=== PATIENT | male | born 1990 | race Two or more races ===

== ENCOUNTER 2016-09-02 10:51 | Emergency (ER) | payer SELFPAY ==
[~2016-09-02] VITALS: Ht 172.7 cm; Wt 99.8 kg
[2016-09-02 10:47] VITALS: BP 138/82
[2016-09-02] MEDS ORDERED: LORazepam Inj 2mg/ml 1ml IV ONE ×2 (11:00→12:30)
[2016-09-02 11:14] LABS: MEAN CORPUSCULAR HEMOGLOBIN 29.1 PG (27.0-31.0); MEAN CORPUSCULAR HGB CONC 33.5 G/DL (32.0-36.0); MEAN CORPUSCULAR VOLUME 87 FL (80-99); PLATELET COUNT 415 K/UL (150-450); RED BLOOD COUNT 6.04 M/UL (4.70-6.10); RED CELL DISTRIBUTION WIDTH 12.6 % (11.6-14.8); WHITE BLOOD COUNT 13.3 K/UL (4.8-10.8)
[2016-09-02 11:27] LABS: ACETAMINOPHEN < 10 ug/mL (10-30); ALANINE AMINOTRANSFERASE 14 U/L (3-41); ALBUMIN/GLOBULIN RATIO 1.4 (1.0-2.7); ALCOHOL < 10 mg/dL; ANION GAP 32 (5-15); ASPARTATE AMINO TRANSFERASE 23 U/L (5-40); CALCIUM 9.5 mg/dL (8.6-10.2); CARBON DIOXIDE 20 mEQ/L (20-30); CHLORIDE 86 mEQ/L (98-107); CREATININE 1.2 mg/dL (0.7-1.2); GLOMERULAR FILTRATION RATE > 60 mL/min (>60); HEMOLYSIS 6; POTASSIUM 3.2 mEQ/L (3.4-4.9); SODIUM 138 mEQ/L (135-145); TOTAL PROTEIN 8.3 g/dL (6.6-8.7)
[2016-09-02 11:41] LABS: BILIRUBIN,DIRECT 0.3 mg/dL (0.1-0.3)
[2016-09-02 12:52] LABS: BAND NEUTROPHILS % (MANUAL) 0 % (0-8); BASOPHILS % (MANUAL) 0 % (0-2); EOSINOPHILS % (MANUAL) 0 % (0-3); LYMPHOCYTES % (MANUAL) 5 % (20-45); NEUTROPHILS % (MANUAL) 89 % (45-75); PLATELET ESTIMATE ADEQUATE; PLATELET MORPHOLOGY NORMAL; TOTAL CELLS COUNTED 100
[2016-09-02 13:11] VITALS: BP 132/80
[2016-09-02 13:12] VITALS: BP 132/80
[2016-09-02] MEDS ORDERED: ZOFRAN ODT4 MG ORAL (13:22)
[2016-09-02] MEDS ORDERED: LIBRIUM25 MG ORAL (13:22)
--- NOTE | 2016-09-02 14:42 | Emergency Room Report ---
History of Present Illness General Chief Complaint: Alcohol Intoxication Source: Patient Present Illness HPI 25-year-old male presents ED complaining of nausea and vomiting. States that he drank a lot of alcohol last night. States he's been having nausea and vomiting since. Last drink was last night. States he feels shaky and feels like he is going into withdrawals. States that he drinks every day. Denies any drug use. Denies hearing voices. Denies any hallucinations. Denies any abdominal pain. No other aggravating or relieving factors. Denies any other associated symptoms Allergies: Coded Allergies: No Known Allergies (Unverified , 09/02/16) Patient History Past Medical History: none Past Surgical History: none Pertinent Family History: none Social History: Denies: alcohol use, drug use, smoking Immunizations: UTD Reviewed Nursing Documentation: PMH: Agreed, PSxH: Agreed Nursing Documentation-PMH Past Medical History: No Stated History Review of Systems All Other Systems: negative except mentioned in HPI Physical Exam Vital Signs Date Time Temp Pulse Resp B/P Pulse Ox O2 Delivery O2 Flow Rate FiO2 09/02/16 10:43 100 24 138/82 100 Room Air 09/02/16 13:11 98.0 Sp02 EP Interpretation: reviewed, normal General Appearance: no apparent distress, alert, GCS 15, non-toxic Head: normocephalic, atraumatic Eyes: bilateral eye PERRL, bilateral eye normal inspection ENT: hearing grossly normal, normal pharynx, no angioedema, normal voice Neck: full range of motion, supple/symm/no masses Respiratory: chest non-tender, lungs clear, normal breath sounds, speaking full sentences Cardiovascular #1: regular rate, rhythm, no edema Cardiovascular #2: 2+ carotid (R), 2+ carotid (L), 2+ radial (R), 2+ radial (L) , 2+ dorsalis pedis (R), 2+ dorsalis pedis (L) Gastrointestinal: normal bowel sounds, non tender, soft, non-distended, no guarding, no rebound Rectal: deferred Genitourinary: normal inspection, no CVA tenderness Musculoskeletal: back normal, gait/station normal, normal range of motion, non- tender Neurologic: alert, oriented x3, responsive, motor strength/tone normal, sensory intact, speech normal Psychiatric: judgement/insight normal, memory normal, mood/affect normal, no suicidal/homicidal ideation, anxious Reflexes: 3+ bicep (R), 3+ bicep (L), 3+ tricep (R), 3+ tricep (L), 3+ knee (R) , 3+ knee (L) Skin: normal color, no rash, warm/dry, well hydrated Lymphatic: no adenopathy Medical Decision Making Diagnostic Impression: Primary Impression: Alcohol withdrawal Qualified Codes: F10.239 - Alcohol dependence with withdrawal, unspecified ER Course Hospital Course 25-year-old male presents ED complaining of shaking, stating he is in withdrawal. nausea and vomiting. Chronic history of alcohol use Differential diagnoses include: Alcohol intoxication, drug abuse, opioid withdrawal, alcohol withdrawal, dehydration, drug seeking behavior Clinical course Patient placed on stretcher. On hospital monitor. After initial history and physical I ordered labs, IV fluids, Ativan, zofran Labs reviewed-electrolytes okay, hemoglobin/hematocrit stable, minimal leukocytosis, alcohol level < 10, aspirin/Tylenol levels negative on reassessment symptoms improved. no signs of acute withdrawal or DTs. patient can be safely discharged to home i. I feel this is a highly complex case requiring extensive working including EKG/Rhythm strip, Xray/CT/US, Blood/urine lab work, repeat exams while in ED, and administration of strong opiates/narcotics for pain control, admission to hospital or close patient follow up. Diagnosis - alcohol withdrawal Stable and discharged to home with prescription for Librium, zofran. Followup with PMD. Return to ED if symptoms recur or worsen Labs Test 09/02/16 10:50 White Blood Count 13.3 K/UL (4.8-10.8) Red Blood Count 6.04 M/UL (4.70-6.10) Hemoglobin 17.6 G/DL (14.2-18.0) Hematocrit 52.5 % (42.0-52.0) Mean Corpuscular Volume 87 FL (80-99) Mean Corpuscular Hemoglobin 29.1 PG (27.0-31.0) Mean Corpuscular Hemoglobin Concent 33.5 G/DL (32.0-36.0) Red Cell Distribution Width 12.6 % (11.6-14.8) Platelet Count 415 K/UL (150-450) Mean Platelet Volume 6.0 FL (6.5-10.1) Neutrophils (%) (Auto) % (45.0-75.0) Lymphocytes (%) (Auto) % (20.0-45.0) Monocytes (%) (Auto) % (1.0-10.0) Eosinophils (%) (Auto) % (0.0-3.0) Basophils (%) (Auto) % (0.0-2.0) Differential Total Cells Counted 100 Neutrophils % (Manual) 89 % (45-75) Lymphocytes % (Manual) 5 % (20-45) Monocytes % (Manual) 6 % (1-10) Eosinophils % (Manual) 0 % (0-3) Basophils % (Manual) 0 % (0-2) Band Neutrophils 0 % (0-8) Platelet Estimate Adequate Platelet Morphology Normal Red Blood Cell Morphology Normal Sodium Level 138 mEQ/L (135-145) Potassium Level 3.2 mEQ/L (3.4-4.9) Chloride Level 86 mEQ/L (98-107) Carbon Dioxide Level 20 mEQ/L (20-30) Anion Gap 32 (5-15) Blood Urea Nitrogen 7 mg/dL (7-23) Creatinine 1.2 mg/dL (0.7-1.2) Estimat Glomerular Filtration Rate > 60 mL/min (>60) Glucose Level 214 mg/dL (74-106) Calcium Level 9.5 mg/dL (8.6-10.2) Total Bilirubin 2.0 mg/dL (0.0-1.2) Direct Bilirubin 0.3 mg/dL (0.1-0.3) Aspartate Amino Transf (AST/SGOT) 23 U/L (5-40) Alanine Aminotransferase (ALT/SGPT) 14 U/L (3-41) Alkaline Phosphatase 90 U/L (40-129) Total Protein 8.3 g/dL (6.6-8.7) Albumin 4.9 g/dL (3.5-5.2) Globulin 3.4 g/dL Albumin/Globulin Ratio 1.4 (1.0-2.7) Salicylates Level < 1 mg/dL (10-30) Acetaminophen Level < 10 ug/mL (10-30) Serum Alcohol < 10 mg/dL Last Vital Signs Date Time Temp Pulse Resp B/P Pulse Ox O2 Delivery O2 Flow Rate FiO2 09/02/16 13:12 98.0 81 17 132/80 100 Room Air Status: improved Disposition: HOME, SELF-CARE Condition: Stable Scripts Chlordiazepoxide (Chlordiazepoxide HCl) 25 Mg Capsule 25 MG ORAL THREE TIMES A DAY, #20 CAP 0 Refills Prov: ENRIKE LOPEZ M.D. 09/02/16 Ondansetron Odt* (ZOFRAN ODT*) 4 Mg Tab.rapdis 4 MG ORAL Q6H Y for Nausea & Vomiting, #30 TAB 0 Refills Prov: ENRIKE LOPEZ M.D. 09/02/16 Patient Instructions: Alcohol Use Disorder ENRIKE LOPEZ M.D. Sep 02, 2016 14:42
== END 2016-09-02 13:29 | disposition home or self-care (01) ==
LOC: EDBD 10:51 → EMR 12:18
DX: F10.239 Alcohol dependence with withdrawal, unspecified (principal); R11.2 Nausea with vomiting, unspecified
CPT/HCPCS: 36415; 80053; 82248; 85007; 85025; 96374; 96375; 99284; G0480; J2405; 80329

== ENCOUNTER 2016-12-01 01:01 | Emergency (ER) | payer SELFPAY ==
[~2016-12-01] VITALS: Ht 172.7 cm; Wt 102.1 kg
[~2016-12-01 01:01] MED LIST: LIBRIUM25 MG ORAL; ZOFRAN ODT4 MG ORAL
[2016-12-01] MEDS ORDERED: NKM (01:10)
[2016-12-01] MEDS ORDERED: LORazepam Inj 2mg/ml 1ml IV ONE (01:30)
[2016-12-01 01:46] VITALS: BP 132/79
[2016-12-01 02:07] LABS: EOSINOPHILS % (AUTO) 0.5 % (0.0-3.0); LYMPHOCYTES % (AUTO) 19.8 % (20.0-45.0); MEAN CORPUSCULAR HEMOGLOBIN 30.5 PG (27.0-31.0); MEAN CORPUSCULAR HGB CONC 34.2 G/DL (32.0-36.0); MEAN CORPUSCULAR VOLUME 89 FL (80-99); MEAN PLATELET VOLUME 7.3 FL (6.5-10.1); MONOCYTES % (AUTO) 9.8 % (1.0-10.0); NEUTROPHILS % (AUTO) 68.9 % (45.0-75.0); PLATELET COUNT 215 K/UL (150-450); RED BLOOD COUNT 5.06 M/UL (4.70-6.10); RED CELL DISTRIBUTION WIDTH 12.6 % (11.6-14.8); WHITE BLOOD COUNT 5.1 K/UL (4.8-10.8)
[2016-12-01 02:20] LABS: ALANINE AMINOTRANSFERASE 28 U/L (3-41); ALBUMIN/GLOBULIN RATIO 1.4 (1.0-2.7); ANION GAP 18 (5-15); ASPARTATE AMINO TRANSFERASE 44 U/L (5-40); CALCIUM 9.1 mg/dL (8.6-10.2); CARBON DIOXIDE 24 mEQ/L (20-30); CHLORIDE 99 mEQ/L (98-107); CREATININE 0.7 mg/dL (0.7-1.2); GLOMERULAR FILTRATION RATE > 60 mL/min (>60); HEMOLYSIS 6; LIPASE 40 U/L (< 60); POTASSIUM 3.8 mEQ/L (3.4-4.9); SODIUM 141 mEQ/L (135-145)
[2016-12-01] MEDS ORDERED: LIBRIUM25 MG ORAL (02:51)
[2016-12-01] MEDS ORDERED: RANITIDINE HCL150 MG ORAL (02:51)
--- NOTE | 2016-12-01 02:51 | Emergency Room Report ---
History of Present Illness General Chief Complaint: Gastrointestinal Bleed Source: Patient Present Illness HPI Is a 26-year-old male who is an alcoholic. His been clean for several months. He started drinking again the last 5 days. Been drinking heavy liquor. He went to [facility] 2 days ago with similar complaint. Had blood work and IV fluid but given. He presents with chief complaint of feeling shaky and vomiting. Unable to keep anything down. Now also with some blood in his vomit. No diarrhea. [place] dehydrated and shaky. Last drink was yesterday afternoon. No pain. Allergies: Coded Allergies: No Known Allergies (Unverified , 09/02/16) Patient History Past Medical History: see triage record, old chart reviewed Past Surgical History: none Pertinent Family History: none Social History: Reports: alcohol use Immunizations: other Reviewed Nursing Documentation: PMH: Agreed, PSxH: Agreed Review of Systems Eye: Denies: blurred vision, eye pain ENT: Denies: ear pain, nose congestion, throat swelling Respiratory: Denies: cough, shortness of breath Cardiovascular: Denies: chest pain, palpitations Gastrointestinal: Reports: abdominal pain, nausea, vomiting, Denies: diarrhea Musculoskeletal: Denies: back pain, joint pain Skin: Denies: rash Neurological: Denies: headache, numbness Endocrine: Denies: increased thirst, increased urine Hematologic/Lymphatic: Denies: easy bruising All Other Systems: negative except mentioned in HPI Physical Exam Vital Signs Date Time Temp Pulse Resp B/P Pulse Ox O2 Delivery O2 Flow Rate FiO2 12/01/16 01:06 98.4 85 18 138/94 97 12/01/16 01:46 Room Air vitals normal Sp02 EP Interpretation: reviewed, normal General Appearance: well appearing, no apparent distress, alert Head: normocephalic, atraumatic Eyes: bilateral eye EOMI, bilateral eye PERRL ENT: hearing grossly normal, normal pharynx Neck: full range of motion, supple, no meningismus Respiratory: chest non-tender, lungs clear, normal breath sounds Cardiovascular #1: regular rate, rhythm, no murmur Gastrointestinal: normal bowel sounds, non tender, no mass, no organomegaly, no bruit, non-distended Musculoskeletal: back normal, gait/station normal, normal range of motion Neurologic: alert, oriented x3, other - Mild tremor Psychiatric: mood/affect normal Skin: warm/dry Medical Decision Making Diagnostic Impression: Primary Impression: Alcohol withdrawal Qualified Codes: F10.230 - Alcohol dependence with withdrawal, uncomplicated Additional Impression: Gastrointestinal hemorrhage Qualified Codes: K29.21 - Alcoholic gastritis with bleeding ER Course Patient presents with alcohol abuse and vomiting. No vomiting or bleeding here. He felt better after IV fluid and Ativan. Hemoglobin stable. We'll discharge home. Lab Results Impression labs unremarka Last Vital Signs Date Time Temp Pulse Resp B/P Pulse Ox O2 Delivery O2 Flow Rate FiO2 12/01/16 01:46 89 19 132/79 96 Room Air 12/01/16 01:06 98.4 Status: improved Disposition: HOME, SELF-CARE Condition: Stable Scripts Ranitidine Hcl* (ZANTAC*) 150 Mg Tablet 150 MG ORAL DAILY, #30 TAB Prov: JAGDISH ARMSTRONG M.D. 12/01/16 Chlordiazepoxide (Chlordiazepoxide HCl) 25 Mg Capsule 25 MG ORAL THREE TIMES A DAY, #15 CAP 0 Refills Prov: JAGDISH ARMSTRONG M.D. 12/01/16 Additional Instructions: Followup with your DrDylan in 2-3 days. Abstain from alcohol. Return if symptom worsen. JAGDISH ARMSTRONG M.D. Dec 01, 2016 02:51
[2016-12-01 03:15] VITALS: BP 129/76
[2016-12-01 03:15] LABS: BILIRUBIN,DIRECT 0.3 mg/dL (0.1-0.3)
== END 2016-12-01 03:15 | disposition home or self-care (01) ==
LOC: EMR 02:00
DX: F10.239 Alcohol dependence with withdrawal, unspecified (principal); K92.2 Gastrointestinal hemorrhage, unspecified; R11.2 Nausea with vomiting, unspecified; R10.9 Unspecified abdominal pain
CPT/HCPCS: 36415; 80053; 82248; 83690; 85025; 96361; 96374; 96375; 99284; J2405

== ENCOUNTER 2016-12-13 14:37 | Emergency (ER) | payer SELFPAY ==
[~2016-12-13] VITALS: Ht 172.7 cm; Wt 99.8 kg
[~2016-12-13 14:37] MED LIST changes: +NKM; +RANITIDINE HCL150 MG ORAL
[2016-12-13] MEDS ORDERED: chlordiazePOXIDE 25mg Cap ORAL ONE (15:00)
[2016-12-13] MEDS ORDERED: Metoclopramide 10mg/2ml Inj IVP ONE (15:00)
[2016-12-13] MEDS ORDERED: ZOFRAN4 M3 ORAL (16:11)
[2016-12-13 16:33] VITALS: BP 135/74
--- NOTE | 2016-12-13 18:57 | Emergency Room Report ---
History of Present Illness General Chief Complaint: Nausea Source: Patient Present Illness HPI The patient is a 26-year-old male with a history of alcohol abuse presenting for stated alcohol withdrawal. He states that he stopped drinking alcohol yesterday. He is now experiencing nausea and vomiting with abdominal pain. It is described as an 8/10 dull ache to the mid upper abdomen. Does not radiate. Worse with vomiting. He denies any other symptoms including F, chills, tremors, dizziness, blurred vision, CP, SOB, hematemesis, diarrhea Allergies: Coded Allergies: No Known Allergies (Unverified , 09/02/16) Patient History Past Medical History: see triage record Pertinent Family History: none Reviewed Nursing Documentation: PMH: Agreed, PSxH: Agreed Nursing Documentation-PMH Past Medical History: No History, Except For Hx Cardiac Problems: Yes - ENLARGE HEART History Of Psychiatric Problem: Yes - etoh abuse Review of Systems All Other Systems: negative except mentioned in HPI Physical Exam Vital Signs Date Time Temp Pulse Resp B/P Pulse Ox O2 Delivery O2 Flow Rate FiO2 12/13/16 14:43 98.4 98 18 99 Room Air 12/13/16 16:33 135/74 Sp02 EP Interpretation: reviewed, normal General Appearance: no apparent distress, alert, GCS 15, non-toxic Head: normocephalic, atraumatic Eyes: bilateral eye PERRL, bilateral eye normal inspection ENT: hearing grossly normal, normal pharynx, no angioedema, normal voice Neck: full range of motion, supple/symm/no masses Respiratory: chest non-tender, lungs clear, normal breath sounds, no wheezing, speaking full sentences Cardiovascular #1: regular rate, rhythm, no edema Gastrointestinal: normal bowel sounds, non tender, soft, non-distended, no guarding, no rebound Rectal: deferred Musculoskeletal: back normal, gait/station normal, normal range of motion, non- tender Neurologic: alert, oriented x3, responsive, motor strength/tone normal, sensory intact, speech normal, other - no tremor Psychiatric: judgement/insight normal, memory normal, mood/affect normal, no suicidal/homicidal ideation Skin: normal color, no rash, warm/dry, well hydrated Medical Decision Making PA Attestation Dr. Reveles is my supervising physician. Patient management was discussed with my supervising physician Diagnostic Impression: Primary Impression: Nausea & vomiting Qualified Codes: R11.2 - Nausea with vomiting, unspecified Additional Impression: Alcohol use disorder ER Course The patient is a 26-year-old male with a history of alcohol abuse presenting for stated alcohol withdrawal DDx considered but not limited to: acute alcohol intoxication, hepatic encephalopathy, alcohol withdrawal, among others PE: vitals WNL. NAD A&Ox4 PERRL. No nystagmus RRR. Lungs CTA bilat No tremor. Pt is given IV fluids, Reglan, and Librium and is feeling better. He is discharged home with a prescription for Zofran. ER precautions are given He was told that he needs to stop drinking alcohol and seek help. He agrees and states that he will check himself into a rehabilitation facility Last Vital Signs Date Time Temp Pulse Resp B/P Pulse Ox O2 Delivery O2 Flow Rate FiO2 12/13/16 16:33 98.4 97 18 135/74 99 Room Air Status: improved Disposition: HOME, SELF-CARE Condition: Improved Scripts Ondansetron* (ZOFRAN*) 4 Mg Tablet 4 MG ORAL Q6H Y for Nausea & Vomiting, #20 TAB Prov: BEN STANFORD 12/13/16 Patient Instructions: Alcohol Use Disorder, Nausea and Vomiting, Adult, Alcohol Withdrawal Additional Instructions: I discussed my findings with the patient. All questions and concerns have been answered. Treatment and medication compliance have been addressed. I advised the patient that they need to follow up with PMD in 3-5 days. Return to ED if symptoms worsen, new symptoms arise, or if needed for any reason. Patient verbalized understanding of discharge instructions. The patient states that he is ready to seek help for alcohol abuse. He was encouraged to check into a rehabilitation program. He agrees. BEN STANFORD Dec 13, 2016 18:57
== END 2016-12-13 16:36 | disposition home or self-care (01) ==
LOC: EMR 16:07
DX: R11.2 Nausea with vomiting, unspecified (principal); F10.10 Alcohol abuse, uncomplicated
CPT/HCPCS: 96374; 96375; 99284; J2765

== ENCOUNTER 2016-12-29 12:09 | Emergency (ER) | payer SELFPAY ==
[~2016-12-29] VITALS: Ht 170.2 cm; Wt 99.8 kg
[~2016-12-29 12:09] MED LIST changes: +ZOFRAN4 M3 ORAL
[2016-12-29] MEDS ORDERED: chlordiazePOXIDE 25mg Cap ORAL ONE (12:45)
--- NOTE | 2016-12-29 12:49 | Emergency Room Report ---
History of Present Illness General Chief Complaint: General Complaint Source: Patient Present Illness [facility] The patient is a 26-year-old male with a history of alcohol abuse presenting for possible alcohol withdrawal. He has been seen in this emergency department for the same complaint several times. He states that he last drank at 9 PM last night. He has been feeling anxious as well as palpitations and abdominal pain. Described as an 8/10 dull ache to the mid upper abdomen and does not radiate. He states that he tried to seek help after his last visit here but ultimately failed. He denies other symptoms including nausea, vomiting, fever, chills, hematemesis , chest pain, shortness of breath Allergies: Coded Allergies: No Known Allergies (Unverified , 09/02/16) Patient History Past Medical History: see triage record Pertinent Family History: none Reviewed Nursing Documentation: PMH: Agreed, PSxH: Agreed Nursing Documentation-PMH Past Medical History: No History, Except For Hx Cardiac Problems: Yes - ENLARGE HEART/ alcaholic Review of Systems All Other Systems: negative except mentioned in HPI Physical Exam Vital Signs Date Time Temp Pulse Resp B/P Pulse Ox O2 Delivery O2 Flow Rate FiO2 12/29/16 12:30 98.1 106 22 139/93 98 Room Air Sp02 EP Interpretation: reviewed, normal General Appearance: no apparent distress, alert, GCS 15, non-toxic Head: normocephalic, atraumatic Eyes: bilateral eye PERRL, bilateral eye normal inspection ENT: hearing grossly normal, normal pharynx, no angioedema, normal voice Neck: full range of motion, supple/symm/no masses Respiratory: chest non-tender, lungs clear, normal breath sounds, no wheezing, speaking full sentences Cardiovascular #1: no gallop, no murmur, no rub, tachycardia Gastrointestinal: normal bowel sounds, soft, non-distended, no guarding, no rebound, tenderness - epigastric Musculoskeletal: back normal, gait/station normal, normal range of motion, non- tender Neurologic: alert, oriented x3, responsive, motor strength/tone normal, sensory intact, speech normal, other - No tremor Psychiatric: judgement/insight normal, memory normal, mood/affect normal, no suicidal/homicidal ideation Skin: normal color, no rash, warm/dry, well hydrated Medical Decision Making PA Attestation Dr. Urbina is my supervising physician. Patient management was discussed with my supervising physician Diagnostic Impression: Primary Impression: Alcohol use disorder ER Course The patient is a 26 yo M presenting for alcohol abuse DDx considered but not limited to: acute alcohol intoxication, hepatic encephalopathy, withdrawal, ACS, among others PE: initially tachycardia. NAD Abd is tender over epigastric region only. Skin warm and dry. No jaundice Lungs CTA bilat RRR. No MRG EKG unremarkable Elevated blood alcohol as well as + for benzo and marijuana He is given IV fluids, zofran, and Librium and feels better. [facility] and needs to seek help for alcohol abuse. He agrees. Laboratory Tests Test 12/29/16 12:52 12/29/16 13:00 Serum Alcohol 163 mg/dL Urine Opiates Screen Negative (NEGATIVE) Urine Barbiturates Screen Negative (NEGATIVE) Phencyclidine (PCP) Screen Negative (NEGATIVE) Urine Amphetamines Screen Negative (NEGATIVE) Urine Benzodiazepines Screen Positive (NEGATIVE) H Urine Cocaine Screen Negative (NEGATIVE) Urine Marijuana (THC) Screen Positive (NEGATIVE) H Lab Results Impression Elevated blood alcohol as well as + for benzo and marijuana EKG Diagnostic Results EP Interpretation: NSR. No acute findings Rate: normal - 90 Rhythm: NSR ST Segments: no acute changes ASA given to the pt in ED: No PA Scribe Text EKG was reviewed and read with my supervising physician. No acute ST segment changes are seen. Normal rate and rhythm. No acute changes. Last Vital Signs Date Time Temp Pulse Resp B/P Pulse Ox O2 Delivery O2 Flow Rate FiO2 12/29/16 12:30 98.1 106 22 139/93 98 Room Air Status: improved Disposition: HOME, SELF-CARE Condition: Improved Scripts Famotidine (PEPCID) 40 Mg Tablet 40 MG PO DAILY, #7 TAB 0 Refills Prov: TERZIAN,BEN P.A. 12/29/16 Ondansetron* (ZOFRAN*) 4 Mg Tablet 4 MG ORAL Q6H Y for Nausea & Vomiting, #20 TAB Prov: TERZIANBEN P.A. 12/29/16 BEN STANFORD P.A. Dec 29, 2016 12:49
[2016-12-29 13:23] VITALS: BP 145/96
[2016-12-29] MEDS ORDERED: PEPCID40 MG PO (14:14)
[2016-12-29] MEDS ORDERED: ZOFRAN4 M3 ORAL (14:14)
[2016-12-29 14:39] VITALS: BP 134/76
[2016-12-29 14:41] VITALS: BP 134/76
--- NOTE | 2016-12-30 16:20 | Cardiology Report ---
APPROVED REPORT EKG Measurement Heart [id number] Normal sinus rhythm Normal ECG
== END 2016-12-29 14:42 | disposition home or self-care (01) ==
LOC: EMR 12:30
DX: F10.10 Alcohol abuse, uncomplicated (principal); R00.2 Palpitations; R10.9 Unspecified abdominal pain; F12.90 Cannabis use, unspecified, uncomplicated; R00.0 Tachycardia, unspecified
CPT/HCPCS: 36415; 80300; 93005; 96374; 96375; 99284; G0480; J2405; 80329

== ENCOUNTER 2017-01-23 09:38 | Inpatient (IN) | payer SELFPAY ==
[~2017-01-23] VITALS: Ht 172.7 cm; Wt 99.8 kg
[~2017-01-23 09:38] MED LIST changes: +PEPCID40 MG PO
[2017-01-23] MEDS ORDERED: Famotidine 20 MG/ 2ML VIAL IVP ONE (10:00)
[2017-01-23] MEDS ORDERED: LORazepam Inj 2mg/ml 1ml IV ONE ×2 (10:15→14:15)
[2017-01-23 10:23] LABS: BASOPHILS % (AUTO) 0.8 % (0.0-2.0); EOSINOPHILS % (AUTO) 0.1 % (0.0-3.0); LYMPHOCYTES % (AUTO) 23.9 % (20.0-45.0); MEAN CORPUSCULAR HEMOGLOBIN 28.9 PG (27.0-31.0); MEAN CORPUSCULAR HGB CONC 32.6 G/DL (32.0-36.0); MEAN CORPUSCULAR VOLUME 89 FL (80-99); MEAN PLATELET VOLUME 6.7 FL (6.5-10.1); MONOCYTES % (AUTO) 7.2 % (1.0-10.0); NEUTROPHILS % (AUTO) 68.1 % (45.0-75.0); PLATELET COUNT 194 K/UL (150-450); RED BLOOD COUNT 6.19 M/UL (4.70-6.10); RED CELL DISTRIBUTION WIDTH 12.5 % (11.6-14.8); WHITE BLOOD COUNT 4.7 K/UL (4.8-10.8)
[2017-01-23 10:29] VITALS: BP 174/93
[2017-01-23 10:47] LABS: ALANINE AMINOTRANSFERASE 26 U/L (3-41); ALBUMIN/GLOBULIN RATIO 1.4 (1.0-2.7); ANION GAP 23 (5-15); ASPARTATE AMINO TRANSFERASE 48 U/L (5-40); CALCIUM 9.1 mg/dL (8.6-10.2); CARBON DIOXIDE 23 mEQ/L (20-30); CHLORIDE 91 mEQ/L (98-107); CREATININE 0.9 mg/dL (0.7-1.2); GLOMERULAR FILTRATION RATE > 60 mL/min (>60); HEMOLYSIS 99; LIPASE 54 U/L (< 60); POTASSIUM 3.8 mEQ/L (3.4-4.9); SODIUM 137 mEQ/L (135-145)
[2017-01-23 11:05] LABS: BILIRUBIN,DIRECT 0.2 mg/dL (0.1-0.3)
[2017-01-23 12:03] VITALS: BP 143/100
[2017-01-23] MEDS ORDERED: Ketorolac 30mg Inj IV ONE (12:45)
[2017-01-23 14:04] VITALS: BP 138/96
--- NOTE | 2017-01-23 14:23 | Emergency Room Report ---
History of Present Illness General Chief Complaint: Vomiting Source: Patient, Medical Record Present Illness HPI 26-year-old male presents to ED complaining of vomiting and abdominal pain. Patient states he's been drinking alcohol every day for the last week. Last drink was last night. Patient has epigastric pain, burning, 7/10, nonradiating. Denies chest pain. Denies shortness of breath. Denies drug use. No other aggravating relieving factors. Denies any other associated symptoms Allergies: Coded Allergies: No Known Allergies (Unverified , 09/02/16) Patient History Past Medical History: none Past Surgical History: none Pertinent Family History: none Social History: Reports: alcohol use, Denies: smoking, drug use Immunizations: UTD Reviewed Nursing Documentation: PMH: Agreed, PSxH: Agreed Nursing Documentation-PMH Past Medical History: No History, Except For Hx Cardiac Problems: Yes - ENLARGE HEART/ alcaholic Review of Systems All Other Systems: negative except mentioned in HPI Physical Exam Vital Signs Date Time Temp Pulse Resp B/P (MAP) Pulse Ox O2 Delivery O2 Flow Rate FiO2 01/23/17 09:41 98.6 119 16 155/93 100 Room Air 01/23/17 10:29 2.0 Sp02 EP Interpretation: reviewed, normal General Appearance: no apparent distress, alert, GCS 15, non-toxic Head: normocephalic, atraumatic Eyes: bilateral eye normal inspection, bilateral eye PERRL ENT: hearing grossly normal, normal pharynx, no angioedema, normal voice Neck: full range of motion, supple/symm/no masses Respiratory: chest non-tender, lungs clear, normal breath sounds, speaking full sentences Cardiovascular #1: regular rate, rhythm, no edema Cardiovascular #2: 2+ carotid (R), 2+ carotid (L), 2+ radial (R), 2+ radial (L) , 2+ dorsalis pedis (R), 2+ dorsalis pedis (L) Gastrointestinal: normal bowel sounds, soft, non-distended, no guarding, no rebound, tenderness - epigastric Rectal: deferred Genitourinary: normal inspection, no CVA tenderness Musculoskeletal: back normal, gait/station normal, normal range of motion, non- tender, calf tenderness Neurologic: alert, oriented x3, responsive, motor strength/tone normal, sensory intact, speech normal Psychiatric: judgement/insight normal, memory normal, no suicidal/homicidal ideation, anxious Reflexes: 3+ bicep (R), 3+ bicep (L), 3+ tricep (R), 3+ tricep (L), 3+ knee (R) , 3+ knee (L) Skin: normal color, no rash, warm/dry, well hydrated Lymphatic: no adenopathy Medical Decision Making Diagnostic Impression: Primary Impression: Alcohol withdrawal Qualified Codes: F10.230 - Alcohol dependence with withdrawal, uncomplicated Additional Impression: Nausea & vomiting Qualified Codes: R11.2 - Nausea with vomiting, unspecified ER Course Hospital Course 26-year-old male presents ED complaining of abdominal pain and vomiting, stating he is in withdrawal. Chronic history of alcohol use Differential diagnoses include: Alcohol intoxication, drug abuse, opioid withdrawal, alcohol withdrawal, dehydration, drug seeking behavior Clinical course Patient placed on stretcher. On secured entrance monitor. After initial history and physical I ordered labs, IV fluids, zofran Ativan Labs reviewed-electrolytes okay, hemoglobin/hematocrit stable, no leukocytosis, alcohol level elevated, aspirin/Tylenol levels negative Patient given multiple rounds of Ativan but remains tremulous and vomiting. Case discussed with Dr. Hebert and he agreed to except the patient to his service for further care and support i. I feel this is a highly complex case requiring extensive working including EKG/Rhythm strip, Xray/CT/US, Blood/urine lab work, repeat exams while in ED, and administration of strong opiates/narcotics for pain control, admission to hospital or close patient follow up. Diagnosis - alcohol withdrawal, nausea and vomiting Admitted to floor in serious condition Labs Test 01/23/17 10:00 White Blood Count 4.7 K/UL (4.8-10.8) Red Blood Count 6.19 M/UL (4.70-6.10) Hemoglobin 17.9 G/DL (14.2-18.0) Hematocrit 54.8 % (42.0-52.0) Mean Corpuscular Volume 89 FL (80-99) Mean Corpuscular Hemoglobin 28.9 PG (27.0-31.0) Mean Corpuscular Hemoglobin Concent 32.6 G/DL (32.0-36.0) Red Cell Distribution Width 12.5 % (11.6-14.8) Platelet Count 194 K/UL (150-450) Mean Platelet Volume 6.7 FL (6.5-10.1) Neutrophils (%) (Auto) 68.1 % (45.0-75.0) Lymphocytes (%) (Auto) 23.9 % (20.0-45.0) Monocytes (%) (Auto) 7.2 % (1.0-10.0) Eosinophils (%) (Auto) 0.1 % (0.0-3.0) Basophils (%) (Auto) 0.8 % (0.0-2.0) Sodium Level 137 mEQ/L (135-145) Potassium Level 3.8 mEQ/L (3.4-4.9) Chloride Level 91 mEQ/L (98-107) Carbon Dioxide Level 23 mEQ/L (20-30) Anion Gap 23 (5-15) Blood Urea Nitrogen 4 mg/dL (7-23) Creatinine 0.9 mg/dL (0.7-1.2) Estimat Glomerular Filtration Rate > 60 mL/min (>60) Glucose Level 187 mg/dL (74-106) Calcium Level 9.1 mg/dL (8.6-10.2) Total Bilirubin 1.7 mg/dL (0.0-1.2) Direct Bilirubin 0.2 mg/dL (0.1-0.3) Aspartate Amino Transf (AST/SGOT) 48 U/L (5-40) Alanine Aminotransferase (ALT/SGPT) 26 U/L (3-41) Alkaline Phosphatase 98 U/L (40-129) Total Protein 8.0 g/dL (6.6-8.7) Albumin 4.7 g/dL (3.5-5.2) Globulin 3.3 g/dL Albumin/Globulin Ratio 1.4 (1.0-2.7) Lipase 54 U/L (< 60) Last Vital Signs Date Time Temp Pulse Resp B/P (MAP) Pulse Ox O2 Delivery O2 Flow Rate FiO2 01/23/17 14:04 98.4 88 15 138/96 100 Nasal Cannula 2.0 Status: improved Disposition: ADMITTED INPATIENT Condition: Serious Referrals: NOT CHOSEN IPA/,REFERRING (PCP) ENRIKE LOPEZ M.D. Jan 23, 2017 14:23
[2017-01-23 15:36] VITALS: BP 142/95
[2017-01-23] MEDS ORDERED: Mylanta II UD 30ml ORAL PRN (15:45)
[2017-01-23] MEDS ORDERED: Morphine Sulfate 2mg/ml Inj IVP PRN (15:45)
[2017-01-23] MEDS ORDERED: Miralax 17gm pkt ORAL PRN (15:45)
[2017-01-23] MEDS ORDERED: Milk of Magnesia 30ml Ud ORAL PRN (15:45)
[2017-01-23] MEDS ORDERED: LORazepam Inj 2mg/ml 1ml IV PRN (15:45)
[2017-01-23] MEDS ORDERED: Morphine Sulfate 4mg/ml Inj IVP PRN (15:45)
--- NOTE | 2017-01-23 15:58 | History and Physical ---
History of Present Illness General Date patient seen: Jan 23, 2017 Time patient seen: 15:58 Reason for Hospitalization: Alcohol withdrawal Present Illness HPI 26y/o male w/ pmh of alcohol abuse with withdrawals who presents with abd pain, nausea and vomiting. Pt states he is a binge drinker. He started drinking heavily a week ago. He drinks 1 bottle of vodka and a couple beers daily, last drink around 9pm last night. This AM he started having abd pain, nausea/vomiting , tremors, anxiety. Denies chest pain, hematemesis, melena, BRBPR, SOB, f/c. Abd pain described as epigastric burning sensation, 02/03 w/o radiation. He has had several episodes of nb/nb emesis. Denies drug use. Allergies: Coded Allergies: No Known Allergies (Unverified , 09/02/16) Medication History Scheduled Chlordiazepoxide (Chlordiazepoxide HCl), 25 MG ORAL THREE TIMES A DAY Chlordiazepoxide (Chlordiazepoxide HCl), 25 MG ORAL THREE TIMES A DAY Famotidine (Pepcid), 40 MG PO DAILY No Known Medications* (NKM - No Known Medications*), 0 ., (Reported) Ranitidine Hcl* (Zantac*), 150 MG ORAL DAILY Scheduled PRN Ondansetron Odt* (Zofran Odt*), 4 MG ORAL Q6H PRN for Nausea & Vomiting Ondansetron* (Zofran*), 4 MG ORAL Q6H PRN for Nausea & Vomiting Ondansetron* (Zofran*), 4 MG ORAL Q6H PRN for Nausea & Vomiting Patient History History Provided By: Patient, Medical Record Healthcare decision maker N Resuscitation status Advanced Directive on File Past Medical/Surgical History Past Medical/Surgical History: (1) Alcohol use disorder Family History Family History: Patient reports no known family medical history. Social History Social History: (1) Alcohol abuse Review of Systems Constitutional: Reports: weakness Eye: Reports: no symptoms ENT: Reports: no symptoms Respiratory: Reports: no symptoms Cardiovascular: Reports: no symptoms Gastrointestinal: Reports: abdominal pain, nausea, vomiting Genitourinary: Reports: no symptoms Musculoskeletal: Reports: no symptoms Skin: Reports: no symptoms Psychiatric: Reports: no symptoms Neurological: Reports: no symptoms Endocrine: Reports: no symptoms Hematologic/Lymphatic: Reports: no symptoms Physical Exam Physical Exam Narrative General: alert, cooperative, no distress, appears stated age Head: normocephalic, without obvious abnormality, atraumatic Eyes: conjunctivae/corneas clear. PERRL, EOM's intact Throat: lips, mucosa, and tongue normal. MMM Neck: supple, symmetrical, trachea midline, and no JVD Lungs: clear to auscultation bilaterally Heart: regular rate and rhythm, S1, S2 normal, no murmur, click, rub or gallop Abdomen: soft, +TTP of epigastrium, non-distended, bowel sounds normal; no masses or organomegaly Extremities: extremities normal, atraumatic, no cyanosis or edema Pulses: 2+ and symmetric Skin: skin color, texture, turgor normal; no rashes or lesions Neurologic: grossly normal, no focal deficits Last 24 Hour Vital Signs Date Time Temp Pulse Resp B/P (MAP) Pulse Ox O2 Delivery O2 Flow Rate FiO2 01/23/17 15:42 98.3 85 16 142/95 99 Nasal Cannula 2.0 01/23/17 15:36 98.3 85 16 142/95 99 Nasal Cannula 2.0 01/23/17 14:04 98.4 88 15 138/96 100 Nasal Cannula 2.0 01/23/17 13:16 98.4 01/23/17 12:03 98.5 94 16 143/100 100 Nasal Cannula 2.0 01/23/17 10:29 98.6 104 16 174/93 96 Nasal Cannula 2.0 01/23/17 09:41 98.6 119 16 155/93 100 Room Air Intake and Output 01/23/17 01/24/17 19:00 07:00 Intake Total 2000 ml Output Total 200 ml Balance 1800 ml Intake IV Total 2000 ml Output Emesis 200 ml Laboratory Tests Test 01/23/17 10:00 White Blood Count 4.7 K/UL (4.8-10.8) L Red Blood Count 6.19 M/UL (4.70-6.10) H Hemoglobin 17.9 G/DL (14.2-18.0) Hematocrit 54.8 % (42.0-52.0) H Mean Corpuscular Volume 89 FL (80-99) Mean Corpuscular Hemoglobin 28.9 PG (27.0-31.0) Mean Corpuscular Hemoglobin Concent 32.6 G/DL (32.0-36.0) Red Cell Distribution Width 12.5 % (11.6-14.8) Platelet Count 194 K/UL (150-450) Mean Platelet Volume 6.7 FL (6.5-10.1) Neutrophils (%) (Auto) 68.1 % (45.0-75.0) Lymphocytes (%) (Auto) 23.9 % (20.0-45.0) Monocytes (%) (Auto) 7.2 % (1.0-10.0) Eosinophils (%) (Auto) 0.1 % (0.0-3.0) Basophils (%) (Auto) 0.8 % (0.0-2.0) Sodium Level 137 mEQ/L (135-145) Potassium Level 3.8 mEQ/L (3.4-4.9) Chloride Level 91 mEQ/L (98-107) L Carbon Dioxide Level 23 mEQ/L (20-30) Anion Gap 23 (5-15) H Blood Urea Nitrogen 4 mg/dL (7-23) L Creatinine 0.9 mg/dL (0.7-1.2) Estimat Glomerular Filtration Rate > 60 mL/min (>60) Glucose Level 187 mg/dL (74-106) H Calcium Level 9.1 mg/dL (8.6-10.2) Total Bilirubin 1.7 mg/dL (0.0-1.2) H Direct Bilirubin 0.2 mg/dL (0.1-0.3) Aspartate Amino Transf (AST/SGOT) 48 U/L (5-40) H Alanine Aminotransferase (ALT/SGPT) 26 U/L (3-41) Alkaline Phosphatase 98 U/L (40-129) Total Protein 8.0 g/dL (6.6-8.7) Albumin 4.7 g/dL (3.5-5.2) Globulin 3.3 g/dL Albumin/Globulin Ratio 1.4 (1.0-2.7) Lipase 54 U/L (< 60) Height (Feet): 5 Height (Inches): 8.00 Weight (Pounds): 220 Assessment/Plan Problem List: (1) Alcohol withdrawal ICD Codes: F10.239 - Alcohol dependence with withdrawal, unspecified SNOMED: 348968392 Qualifiers: Qualified Codes: F10.230 - Alcohol dependence with withdrawal, uncomplicated (2) Nausea & vomiting ICD Codes: R11.2 - Nausea with vomiting, unspecified SNOMED: 07684578 Qualifiers: Qualified Codes: R11.2 - Nausea with vomiting, unspecified (3) Epigastric abdominal pain ICD Codes: R10.13 - Epigastric pain SNOMED: 32574913 (4) Alcohol use disorder ICD Codes: F10.99 - Alcohol use, unspecified with unspecified alcohol-induced disorder SNOMED: 94760004, 625649 Status: stable Assessment/Plan Admit inpt Banana bag Ativan IV for alcohol withdrawal symptoms Nausea control Pain control CLD for now PPI Consider GI eval if persistent symptoms ctm CBC, lytes SW consulted for patient assistance w/ substance abuse treatment as he states he is interested SCDs for DVT ppx FULL CODE D/w pt, RN regarding mgmt and dispo Clarissa Benjamin M.D. Jan 23, 2017 15:58
[2017-01-23 16:14] VITALS: BP 155/93
[2017-01-23] MEDS ORDERED: DuoNeb 0.5-3(2.5)mg/3ml neb HHN PRN (17:00)
[2017-01-23] MEDS: Docusate 100mg cap ORAL SCH (20:53)
[2017-01-23] MEDS: Folic Acid 1 MG, Magnesium Sulfate 2,000 MG, Multivitamin - 12 Injection 10 ML in NS w/... IV SCH (20:53)
[2017-01-23] MEDS: Thiamine 100mg in D5W 55ml IVPB SCH (20:53)
[2017-01-23 21:47] VITALS: BP 147/88
[2017-01-24 04:00] VITALS: BP 152/87
[2017-01-24 06:31] LABS: BASOPHILS % (AUTO) 0.2 % (0.0-2.0); EOSINOPHILS % (AUTO) 0.1 % (0.0-3.0); LYMPHOCYTES % (AUTO) 12.9 % (20.0-45.0); MEAN CORPUSCULAR HEMOGLOBIN 30.6 PG (27.0-31.0); MEAN CORPUSCULAR HGB CONC 33.9 G/DL (32.0-36.0); MEAN CORPUSCULAR VOLUME 90 FL (80-99); MEAN PLATELET VOLUME 7.1 FL (6.5-10.1); MONOCYTES % (AUTO) 10.6 % (1.0-10.0); NEUTROPHILS % (AUTO) 76.2 % (45.0-75.0); PLATELET COUNT 103 K/UL (150-450); RED BLOOD COUNT 4.89 M/UL (4.70-6.10); RED CELL DISTRIBUTION WIDTH 12.5 % (11.6-14.8); WHITE BLOOD COUNT 5.8 K/UL (4.8-10.8)
[2017-01-24 06:47] LABS: ALANINE AMINOTRANSFERASE 18 U/L (3-41); ALBUMIN/GLOBULIN RATIO 1.3 (1.0-2.7); ANION GAP 13 (5-15); ASPARTATE AMINO TRANSFERASE 31 U/L (5-40); CALCIUM 9.2 mg/dL (8.6-10.2); CARBON DIOXIDE 26 mEQ/L (20-30); CHLORIDE 98 mEQ/L (98-107); CREATININE 0.8 mg/dL (0.7-1.2); GLOMERULAR FILTRATION RATE > 60 mL/min (>60); HEMOLYSIS 7; MAGNESIUM 1.8 mg/dL (1.7-2.5); POTASSIUM 3.4 mEQ/L (3.4-4.9); SODIUM 137 mEQ/L (135-145); TOTAL PROTEIN 6.8 g/dL (6.6-8.7)
[2017-01-24 07:26] LABS: BILIRUBIN,DIRECT 0.3 mg/dL (0.1-0.3)
[2017-01-24 10:00] VITALS: BP 147/83
[2017-01-24] MEDS: Docusate 100mg cap ORAL SCH ×2 (10:10→20:33)
[2017-01-24 12:00] VITALS: BP 145/92
[2017-01-24 16:49] VITALS: BP 147/74
[2017-01-24 20:00] VITALS: BP 152/88
[2017-01-24] MEDS: Folic Acid 1 MG, Magnesium Sulfate 2,000 MG, Multivitamin - 12 Injection 10 ML in NS w/... IV SCH (20:34)
[2017-01-24] MEDS: Thiamine 100mg in D5W 55ml IVPB SCH (22:00)
[2017-01-25 04:00] VITALS: BP 144/93
[2017-01-25 08:10] VITALS: BP 156/86
--- NOTE | 2017-01-25 08:10 | General Progress Note ---
Assessment/Plan Problem List: (1) Alcohol withdrawal ICD Codes: F10.239 - Alcohol dependence with withdrawal, unspecified SNOMED: 508322956 Qualifiers: Qualified Codes: F10.230 - Alcohol dependence with withdrawal, uncomplicated (2) Epigastric abdominal pain ICD Codes: R10.13 - Epigastric pain SNOMED: 44422368 (3) Nausea & vomiting ICD Codes: R11.2 - Nausea with vomiting, unspecified SNOMED: 90530983 Qualifiers: Qualified Codes: R11.2 - Nausea with vomiting, unspecified (4) Alcohol use disorder ICD Codes: F10.99 - Alcohol use, unspecified with unspecified alcohol-induced disorder SNOMED: 82149181, 583129 Status: progressing Assessment/Plan Banana bag Ativan IV for alcohol withdrawal symptoms Nausea control Pain control CLD for now PPI GI consulted given persistent symptoms ctm CBC, lytes SW consulted for patient assistance w/ substance abuse treatment as he states he is interested SCDs for DVT ppx FULL CODE D/w pt, RN regarding mgmt and dispo Subjective Date patient seen: Jan 24, 2017 Time patient seen: 15:20 ROS Limited/Unobtainable: No Constitutional: Reports: weakness HEENT: Reports: no symptoms Cardiovascular: Reports: no symptoms Respiratory: Reports: no symptoms Gastrointestinal/Abdominal: Reports: abdominal pain, vomiting Genitourinary: Reports: no symptoms Neurologic/Psychiatric: Reports: no symptoms Endocrine: Reports: no symptoms Hematologic/Lymphatic: Reports: no symptoms Allergies: Coded Allergies: No Known Allergies (Unverified , 09/02/16) Subjective Cont w/ nausea, vomiting and abd pain. GI consulted No further tremors Has not required any ativan for withdrawal symptoms today Objective Last 24 Hour Vital Signs Date Time Temp Pulse Resp B/P (MAP) Pulse Ox O2 Delivery O2 Flow Rate FiO2 01/25/17 04:00 97.5 85 18 144/93 96 Room Air 01/24/17 20:00 98.2 93 18 152/88 99 Room Air 01/24/17 19:14 74 18 Room Air 21 01/24/17 16:49 98.4 74 18 147/74 100 Room Air 01/24/17 12:00 98.4 85 20 145/92 98 Room Air 01/24/17 10:00 97.9 75 18 147/83 Room Air Height (Feet): 5 Height (Inches): 8.00 Weight (Pounds): 220 Objective General: alert, cooperative, no distress, appears stated age Head: normocephalic, without obvious abnormality, atraumatic Eyes: conjunctivae/corneas clear. PERRL, EOM's intact Throat: lips, mucosa, and tongue normal. MMM Neck: supple, symmetrical, trachea midline, and no JVD Lungs: clear to auscultation bilaterally Heart: regular rate and rhythm, S1, S2 normal, no murmur, click, rub or gallop Abdomen: soft, +TTP of epigastrium, non-distended, bowel sounds normal; no masses or organomegaly Extremities: extremities normal, atraumatic, no cyanosis or edema Pulses: 2+ and symmetric Skin: skin color, texture, turgor normal; no rashes or lesions Neurologic: grossly normal, no focal deficits Clarissa Benjamin M.D. Jan 25, 2017 08:10
[2017-01-25] MEDS: Docusate 100mg cap ORAL SCH ×2 (08:26→20:35)
[2017-01-25 09:46] LABS: MEAN CORPUSCULAR HEMOGLOBIN 29.5 PG (27.0-31.0); MEAN CORPUSCULAR VOLUME 89 FL (80-99); MEAN PLATELET VOLUME 6.9 FL (6.5-10.1); PLATELET COUNT 99 K/UL (150-450); RED BLOOD COUNT 5.39 M/UL (4.70-6.10); RED CELL DISTRIBUTION WIDTH 12.3 % (11.6-14.8); WHITE BLOOD COUNT 7.8 K/UL (4.8-10.8)
[2017-01-25 10:12] LABS: ALANINE AMINOTRANSFERASE 29 U/L (3-41); ANION GAP 14 (5-15); ASPARTATE AMINO TRANSFERASE 53 U/L (5-40); BILIRUBIN,DIRECT 0.6 mg/dL (0.1-0.3); CALCIUM 9.5 mg/dL (8.6-10.2); CARBON DIOXIDE 23 mEQ/L (20-30); CHLORIDE 97 mEQ/L (98-107); CREATININE 0.9 mg/dL (0.7-1.2); GLOMERULAR FILTRATION RATE > 60 mL/min (>60); HEMOLYSIS 7; PHOSPHORUS 3.1 mg/dL (2.5-4.8); POTASSIUM 3.5 mEQ/L (3.4-4.9); SODIUM 134 mEQ/L (135-145); TOTAL PROTEIN 7.5 g/dL (6.6-8.7)
--- NOTE | 2017-01-25 10:50 | General Progress Note ---
Assessment/Plan Problem List: (1) Nausea & vomiting ICD Codes: R11.2 - Nausea with vomiting, unspecified SNOMED: 70522066 Qualifiers: Qualified Codes: R11.2 - Nausea with vomiting, unspecified (2) Alcohol use disorder ICD Codes: F10.99 - Alcohol use, unspecified with unspecified alcohol-induced disorder SNOMED: 06473224, 703094 (3) Epigastric abdominal pain ICD Codes: R10.13 - Epigastric pain SNOMED: 26803374 Assessment/Plan advance diet monitor for withdraw nausea meds Subjective ROS Limited/Unobtainable: Yes Allergies: Coded Allergies: No Known Allergies (Unverified , 09/02/16) Subjective c/o nausea Objective Last 24 Hour Vital Signs Date Time Temp Pulse Resp B/P (MAP) Pulse Ox O2 Delivery O2 Flow Rate FiO2 01/25/17 08:10 98.6 97 21 156/86 98 Room Air 01/25/17 04:00 97.5 85 18 144/93 96 Room Air 01/24/17 20:00 98.2 93 18 152/88 99 Room Air 01/24/17 19:14 74 18 Room Air 21 01/24/17 16:49 98.4 74 18 147/74 100 Room Air 01/24/17 12:00 98.4 85 20 145/92 98 Room Air Laboratory Tests 01/25/17 09:25: White Blood Count 7.8, Red Blood Count 5.39, Hemoglobin 15.9, Hematocrit 48.1, Mean Corpuscular Volume 89, Mean Corpuscular Hemoglobin 29.5, Mean Corpuscular Hemoglobin Concent 33.0, Red Cell Distribution Width 12.3, Platelet Count 99L, Mean Platelet Volume 6.9, Neutrophils (%) (Auto) , Lymphocytes (%) (Auto) , Monocytes (%) (Auto) , Eosinophils (%) (Auto) , Basophils (%) (Auto) , Neutrophils % (Manual) [Pending], Lymphocytes % (Manual) [Pending], Platelet Estimate [Pending], Platelet Morphology [Pending], Sodium Level 134L, Potassium Level 3.5, Chloride Level 97L, Carbon Dioxide Level 23, Anion Gap 14, Blood Urea Nitrogen 5L, Creatinine 0.9, Estimat Glomerular Filtration Rate > 60, Glucose Level 94, Calcium Level 9.5, Phosphorus Level 3.1, Magnesium Level 2.0, Total Bilirubin 3.6H, Direct Bilirubin 0.6H, Aspartate Amino Transf (AST/SGOT) 53H, Alanine Aminotransferase (ALT/SGPT) 29, Alkaline Phosphatase 83, Total Protein 7.5, Albumin 4.3 Height (Feet): 5 Height (Inches): 8.00 Weight (Pounds): 220 General Appearance: alert EENT: normal ENT inspection Neck: supple Cardiovascular: normal rate Respiratory/Chest: lungs clear Abdomen: normal bowel sounds, non tender, soft Extremities: non-tender TIEN YUEN Jan 25, 2017 10:50
[2017-01-25 11:01] LABS: BAND NEUTROPHILS % (MANUAL) 1 % (0-8); LYMPHOCYTES % (MANUAL) 20 % (20-45); NEUTROPHILS % (MANUAL) 73 % (45-75); TOTAL CELLS COUNTED 100
[2017-01-25 11:02] LABS: BASOPHILS % (MANUAL) 0 % (0-2); EOSINOPHILS % (MANUAL) 0 % (0-3); PLATELET ESTIMATE DECREASED; PLATELET MORPHOLOGY NORMAL
[2017-01-25 12:00] VITALS: BP 154/94
[2017-01-25] MEDS ORDERED: Tubing IV Secondary IV ONE (13:55)
[2017-01-25 16:00] VITALS: BP 144/99
[2017-01-25 20:00] VITALS: BP 141/95
[2017-01-25] MEDS: Folic Acid 1 MG, Magnesium Sulfate 2,000 MG, Multivitamin - 12 Injection 10 ML in NS w/... IV SCH (20:34)
[2017-01-25] MEDS: Thiamine 100mg in D5W 55ml IVPB SCH (20:34)
[2017-01-26] VITALS: BP 147/96
[2017-01-26 04:31] VITALS: BP 131/90
[2017-01-26 07:13] LABS: ALANINE AMINOTRANSFERASE 39 U/L (3-41); ALBUMIN/GLOBULIN RATIO 1.4 (1.0-2.7); ANION GAP 15 (5-15); ASPARTATE AMINO TRANSFERASE 59 U/L (5-40); CALCIUM 9.5 mg/dL (8.6-10.2); CARBON DIOXIDE 23 mEQ/L (20-30); CHLORIDE 97 mEQ/L (98-107); CREATININE 0.8 mg/dL (0.7-1.2); GLOMERULAR FILTRATION RATE > 60 mL/min (>60); HEMOLYSIS 14; POTASSIUM 3.5 mEQ/L (3.4-4.9); SODIUM 135 mEQ/L (135-145); TOTAL PROTEIN 7.4 g/dL (6.6-8.7)
[2017-01-26 07:48] LABS: BILIRUBIN,DIRECT 0.5 mg/dL (0.1-0.3)
[2017-01-26 08:13] VITALS: BP 130/87
[2017-01-26] MEDS: Docusate 100mg cap ORAL SCH (08:41)
--- NOTE | 2017-01-26 09:09 | General Progress Note ---
Assessment/Plan Problem List: (1) Nausea & vomiting ICD Codes: R11.2 - Nausea with vomiting, unspecified SNOMED: 90018657 Qualifiers: Qualified Codes: R11.2 - Nausea with vomiting, unspecified (2) Alcohol use disorder ICD Codes: F10.99 - Alcohol use, unspecified with unspecified alcohol-induced disorder SNOMED: 55992195, 555643 (3) Epigastric abdominal pain ICD Codes: R10.13 - Epigastric pain SNOMED: 00926701 Assessment/Plan improving LFTS monitor for withdraw nausea meds Subjective ROS Limited/Unobtainable: Yes Allergies: Coded Allergies: No Known Allergies (Unverified , 09/02/16) Subjective c/o nausea Objective Last 24 Hour Vital Signs Date Time Temp Pulse Resp B/P (MAP) Pulse Ox O2 Delivery O2 Flow Rate FiO2 01/26/17 08:44 98 18 Room Air 01/26/17 08:13 97.9 83 20 130/87 98 Room Air 01/26/17 04:31 98.1 82 20 131/90 97 Room Air 01/26/17 00:00 98.4 79 20 147/96 97 Room Air 01/25/17 20:00 98.6 95 20 141/95 97 Room Air 01/25/17 16:00 98.3 19 144/99 95 Room Air 01/25/17 12:00 98.6 21 154/94 97 Room Air Intake and Output 01/26/17 01/27/17 19:00 07:00 Intake Total 420 ml Balance 420 ml Intake Oral 420 ml # Voids 1 Laboratory Tests 01/25/17 09:25: White Blood Count 7.8, Red Blood Count 5.39, Hemoglobin 15.9, Hematocrit 48.1, Mean Corpuscular Volume 89, Mean Corpuscular Hemoglobin 29.5, Mean Corpuscular Hemoglobin Concent 33.0, Red Cell Distribution Width 12.3, Platelet Count 99L, Mean Platelet Volume 6.9, Neutrophils (%) (Auto) , Lymphocytes (%) (Auto) , Monocytes (%) (Auto) , Eosinophils (%) (Auto) , Basophils (%) (Auto) , Differential Total Cells Counted 100, Neutrophils % (Manual) 73, Lymphocytes % ( Manual) 20, Monocytes % (Manual) 6, Eosinophils % (Manual) 0, Basophils % ( Manual) 0, Band Neutrophils 1, Platelet Estimate DecreasedL, Platelet Morphology Normal, Red Blood Cell Morphology Normal, Sodium Level 134L, Potassium Level 3.5, Chloride Level 97L, Carbon Dioxide Level 23, Anion Gap 14, Blood Urea Nitrogen 5L, Creatinine 0.9, Estimat Glomerular Filtration Rate > 60 , Glucose Level 94, Calcium Level 9.5, Phosphorus Level 3.1, Magnesium Level 2.0 , Total Bilirubin 3.6H, Direct Bilirubin 0.6H, Aspartate Amino Transf (AST/SGOT ) 53H, Alanine Aminotransferase (ALT/SGPT) 29, Alkaline Phosphatase 83, Total Protein 7.5, Albumin 4.3 01/26/17 05:50: Sodium Level 135, Potassium Level 3.5, Chloride Level 97L, Carbon Dioxide Level 23, Anion Gap 15, Blood Urea Nitrogen 6L, Creatinine 0.8, Estimat Glomerular Filtration Rate > 60, Glucose Level 88, Calcium Level 9.5, Total Bilirubin 2.7H , Direct Bilirubin 0.5H, Aspartate Amino Transf (AST/SGOT) 59H, Alanine Aminotransferase (ALT/SGPT) 39, Alkaline Phosphatase 82, Total Protein 7.4, Albumin 4.4, Globulin 3.0, Albumin/Globulin Ratio 1.4 Height (Feet): 5 Height (Inches): 8.00 Weight (Pounds): 220 General Appearance: alert EENT: normal ENT inspection Neck: supple Cardiovascular: normal rate Respiratory/Chest: lungs clear Abdomen: normal bowel sounds, non tender, soft Extremities: non-tender TIEN YUEN Jan 26, 2017 09:09
--- NOTE | 2017-01-26 19:45 | General Progress Note ---
Assessment/Plan Problem List: (1) Alcohol withdrawal ICD Codes: F10.239 - Alcohol dependence with withdrawal, unspecified SNOMED: 173566124 Qualifiers: Qualified Codes: F10.230 - Alcohol dependence with withdrawal, uncomplicated (2) Epigastric abdominal pain ICD Codes: R10.13 - Epigastric pain SNOMED: 32069456 (3) Nausea & vomiting ICD Codes: R11.2 - Nausea with vomiting, unspecified SNOMED: 41063951 Qualifiers: Qualified Codes: R11.2 - Nausea with vomiting, unspecified (4) Alcohol use disorder ICD Codes: F10.99 - Alcohol use, unspecified with unspecified alcohol-induced disorder SNOMED: 21126559, 367058 Status: stable Assessment/Plan Banana bag Ativan IV for alcohol withdrawal symptoms Nausea control Pain control PPI GI consulted given persistent symptoms Advance diet to regular --> if tolerating then d/c home ctm CBC, lytes SW consulted for patient assistance w/ substance abuse treatment as he states he is interested SCDs for DVT ppx FULL CODE D/w pt, RN regarding mgmt and dispo Subjective Date patient seen: Jan 25, 2017 Time patient seen: 14:00 ROS Limited/Unobtainable: No Constitutional: Reports: no symptoms HEENT: Reports: no symptoms Cardiovascular: Reports: no symptoms Respiratory: Reports: no symptoms Gastrointestinal/Abdominal: Reports: abdominal pain, nausea Genitourinary: Reports: no symptoms Neurologic/Psychiatric: Reports: no symptoms Endocrine: Reports: no symptoms Hematologic/Lymphatic: Reports: no symptoms Allergies: Coded Allergies: No Known Allergies (Unverified , 09/02/16) Subjective Nausea/vomiting and abd pain improved Diet advanced to regular per GI but has not tried it yet No further tremors Has not required any ativan for withdrawal symptoms today Objective Last 24 Hour Vital Signs Date Time Temp Pulse Resp B/P (MAP) Pulse Ox O2 Delivery O2 Flow Rate FiO2 01/26/17 08:44 98 18 Room Air 01/26/17 08:13 97.9 83 20 130/87 98 Room Air 01/26/17 04:31 98.1 82 20 131/90 97 Room Air 01/26/17 00:00 98.4 79 20 147/96 97 Room Air 01/25/17 20:00 98.6 95 20 141/95 97 Room Air Intake and Output 01/26/17 01/27/17 19:00 07:00 Intake Total 420 ml Balance 420 ml Intake Oral 420 ml # Voids 1 Laboratory Tests 01/26/17 05:50: Sodium Level 135, Potassium Level 3.5, Chloride Level 97L, Carbon Dioxide Level 23, Anion Gap 15, Blood Urea Nitrogen 6L, Creatinine 0.8, Estimat Glomerular Filtration Rate > 60, Glucose Level 88, Calcium Level 9.5, Total Bilirubin 2.7H , Direct Bilirubin 0.5H, Aspartate Amino Transf (AST/SGOT) 59H, Alanine Aminotransferase (ALT/SGPT) 39, Alkaline Phosphatase 82, Total Protein 7.4, Albumin 4.4, Globulin 3.0, Albumin/Globulin Ratio 1.4 Height (Feet): 5 Height (Inches): 8.00 Weight (Pounds): 220 Objective General: alert, cooperative, no distress, appears stated age Head: normocephalic, without obvious abnormality, atraumatic Eyes: conjunctivae/corneas clear. PERRL, EOM's intact Throat: lips, mucosa, and tongue normal. MMM Neck: supple, symmetrical, trachea midline, and no JVD Lungs: clear to auscultation bilaterally Heart: regular rate and rhythm, S1, S2 normal, no murmur, click, rub or gallop Abdomen: soft, +TTP of epigastrium, non-distended, bowel sounds normal; no masses or organomegaly Extremities: extremities normal, atraumatic, no cyanosis or edema Pulses: 2+ and symmetric Skin: skin color, texture, turgor normal; no rashes or lesions Neurologic: grossly normal, no focal deficits Clarissa Benjamin M.D. Jan 26, 2017 19:45
== END 2017-01-26 10:40 | disposition left against medical advice (07) | DRG 894 ==
LOC: EMR 09:55 → 4W 14:40 → EDBEDREQ 15:18 → 4W 15:58 → 3E 01-25 12:30
DX: F10.230 Alcohol dependence with withdrawal, uncomplicated (principal); F41.9 Anxiety disorder, unspecified; R11.2 Nausea with vomiting, unspecified
CPT/HCPCS: 36415; 80048; 80053; 80076; 82248; 83690; 83735; 84100; 85007; 85025; 94664; 99285; J2405

== ENCOUNTER 2017-11-11 03:46 | Emergency (ER) | payer MEDICAID, OTHER ==
[~2017-11-11] VITALS: Ht 172.7 cm; Wt 104.3 kg
[2017-11-11 04:12] VITALS: BP 158/98
[2017-11-11] MEDS ORDERED: Lidocaine 2% Visc 15ml soln ORAL ONE (04:15)
[2017-11-11] MEDS ORDERED: Mylanta II UD 30ml ORAL ONE (04:15)
[2017-11-11] MEDS ORDERED: Dicyclomine HCl 10mg/5ml oral soln ORAL ONE (04:15)
[2017-11-11 04:25] VITALS: BP 158/98
--- NOTE | 2017-11-13 15:36 | Emergency Room Report ---
History of Present Illness General Chief Complaint: Alcohol Intoxication Source: Medical Record Present Illness HPI 27-year-old male presents ED status post EtOH intoxication. States he was drinking all night. States he was a [place] [facility] prior to this. Received IV fluids. Was subsequently discharged. Patient states he is having uneasiness in his stomach. Complaining of nausea. Denies drug use. Denies chest pain or shortness of breath. No other aggravating relieving factors. Denies any other associated symptoms Allergies: Coded Allergies: No Known Allergies (Unverified , 09/02/16) Patient History Past Medical History: none Past Surgical History: none Pertinent Family History: none Social History: Reports: alcohol use; Denies: smoking, drug use Immunizations: UTD Reviewed Nursing Documentation: PMH: Agreed; PSxH: Agreed Nursing Documentation-PMH Past Medical History: No History, Except For Hx Cardiac Problems: Yes - Cardiomegaly Hx Neurological Problems: No Review of Systems All Other Systems: negative except mentioned in HPI Physical Exam Vital Signs Date Time Temp Pulse Resp B/P (MAP) Pulse Ox O2 Delivery O2 Flow Rate FiO2 11/11/17 03:58 98.3 104 16 161/105 97 Room Air 98.2 Sp02 EP Interpretation: reviewed, normal General Appearance: no apparent distress, alert, GCS 15, non-toxic, obese Head: normocephalic, atraumatic Eyes: bilateral eye normal inspection, bilateral eye PERRL ENT: hearing grossly normal, normal pharynx, no angioedema, normal voice Neck: full range of motion, supple/symm/no masses Respiratory: chest non-tender, lungs clear, normal breath sounds, speaking full sentences Cardiovascular #1: regular rate, rhythm, no edema Cardiovascular #2: 2+ carotid (R), 2+ carotid (L), 2+ radial (R), 2+ radial (L) , 2+ dorsalis pedis (R), 2+ dorsalis pedis (L) Gastrointestinal: normal bowel sounds, non tender, soft, non-distended, no guarding, no rebound Rectal: deferred Genitourinary: normal inspection, no CVA tenderness Musculoskeletal: back normal, gait/station normal, normal range of motion, non- tender Neurologic: alert, oriented x3, responsive, motor strength/tone normal, sensory intact, speech normal Psychiatric: judgement/insight normal, memory normal, mood/affect normal, no suicidal/homicidal ideation Reflexes: 3+ bicep (R), 3+ bicep (L), 3+ tricep (R), 3+ tricep (L), 3+ knee (R) , 3+ knee (L) Skin: normal color, no rash, warm/dry, well hydrated Lymphatic: no adenopathy Medical Decision Making Diagnostic Impression: Primary Impression: Acute alcoholic intoxication Qualified Codes: F10.929 - Alcohol use, unspecified with intoxication, unspecified Additional Impression: Epigastric abdominal pain ER Course Hospital Course 27 yo M presents to ED s/p ETOH itnoxication. Just discharged from another hospital Clinical course Patient placed on stretcher. After initial history physical exam reveals male in no acute distress. Abdomen is soft. No guarding or rebound. Patient states he needs more IV fluids. I explained to the patient that he was just discharged from another hospital with IV hydration. patient has stable vitals. There is no indication for continues IV hydration. I offered to provide him with ODT Zofran, GI cocktail and Pepcid. Patient refused these medications and walked out I reviewed EMR. Patient has been here multiple times for alcohol intoxication, alcohol withdrawal Diagnosis - ETOH intoxication, epigastric abd pain. patient eloped. Last Vital Signs Date Time Temp Pulse Resp B/P (MAP) Pulse Ox O2 Delivery O2 Flow Rate FiO2 11/11/17 04:25 98.0 78 18 158/98 97 Room Air 98.0 Status: improved Disposition: ELOPED Condition: Stable Referrals: [facility],REFERRING (PCP) Yohannes Reveles MD Nov 13, 2017 15:36
== END 2017-11-11 04:25 | disposition left against medical advice (07) ==
LOC: EMR 04:20
DX: F10.129 Alcohol abuse with intoxication, unspecified (principal); R10.13 Epigastric pain
CPT/HCPCS: 99284